=== PATIENT | male | born 1995 | race Caucasian/White ===

== ENCOUNTER 2021-03-23 20:27 | Inpatient (IN) | payer SELFPAY ==
[2021-03-23 20:31] VITALS: BP 142/108; PULSE 89; RESP 18; TEMP 37; O2SAT 98; BMI 38.2
--- NOTE | 2021-03-23 20:35 | W.ED.PSYCH ---
HPI - Psych General: Chief Complaint: Psychiatric Symptoms Stated Complaint: SI Time Seen by Provider: 03/23/21 20:29 Source: patient and EMS Mode of arrival: EMS Limitations: no limitations History of Present Illness: HPI Narrative: 25-year-old male who is brought in by EMS for suicidal ideations. He states that [facility] had a knife that he take away from him as he was trying to kill himself with a knife. He states he is had suicide attempts in the past. He states his last admission was 2 years ago. He states he voluntarily wants to get help. Associated symptoms: Reports depression and suicidal ideation Review of Systems Const: Denies: fever(s), chills, body aches or change in appetite Eyes: Denies: blurry vision or eye discomfort ENMT: Denies: throat pain or dental pain Card: Denies: chest pain Resp: Denies: dyspnea GI: Denies: abdominal pain, nausea, vomiting or diarrhea : Denies: dysuria Musc: Denies: neck pain or back pain Skin/Breast: Denies: rash Neuro: Denies: headache(s) Psych: Reports: depression and suicidal ideation Roberto Carlos/Lymph: Denies: easy bruising All/Imm: Denies: urticaria Physical Exam Const: COMMON NORMALS: no acute distress, patient oriented x3 and healthy appearing HENMT: COMMON NORMALS: normocephalic and atraumatic HEAD & SCALP: normocephalic and atraumatic Eye: COMMON NORMALS: Equal, round and reactive pupils present and EOMs intact bilaterally PUPIL: Yes Equal, round and reactive pupils present Neck/C-Spine: COMMON NORMALS: full ROM and supple Chest: COMMONS NORMALS: normal inspection of the chest and normal palpation of entire chest wall Resp: COMMON NORMALS: normal respiratory effort, No retractions, No use of accessory muscles and clear to auscultation bilaterally AUSCULTATION: clear to auscultation bilaterally Cardio: COMMON NORMALS: regular rate, regular rhythm and No murmurs present (Cardio) RATE: regular rate RHYTHM: regular rhythm GI: COMMON NORMALS: Normal to inspection, nondistended, normoactive bowel sounds present, Soft to palpation, non-tender and no masses PALPATION: Yes Soft to palpation Extremity: COMMON NORMALS: normal to inspection and full ROM Neuro: COMMON NORMALS: patient oriented x3, moves all extremities and no focal motor deficits Psych: COMMON NORMALS: mental status grossly normal, Normal thought process present and cooperative MOOD & AFFECT: Yes depressed mood THOUGHT PROCESS: Normal thought process present THOUGHT CONTENT: Yes Suicidality present Skin: COMMON NORMALS: no rashes or lesions noted and no wounds GENERAL SKIN EXAM: no rashes or lesions noted Course Vital Signs: Vital signs: Vital Signs Temperature 98.6 F 03/23/21 20:31 Pulse Rate 89 03/23/21 20:31 Respiratory Rate 18 03/23/21 20:31 Blood Pressure 142/108 03/23/21 20:31 Pulse Oximetry 98 03/23/21 20:31 MDM - Psych MDM Narrative: Medical decision making narrative: Patient presents for suicidal ideation was placed on a 96-hour hold. Patient is medically cleared and will admit to the psychiatric unit. Patient has been stable while here. Lab Data: Labs: Lab Results 03/23/21 03/23/21 03/23/21 Range/Units 20:34 20:51 20:51 WBC 13.1 H (4.0-10.0) 10^3/ uL RBC 5.23 (4.1-5.3) 10^6/u L Hgb 14.3 (11.7-16.6) g/dL Hct 43.6 (42.0-52.0) % MCV 83.4 (80-94) fl MCH 27.3 L (28.0-34.0) pg MCHC 32.8 (30.0-36.0) g/dL RDW 13.0 (12.1-15.1) % Plt Count 365 (130-400) 10^3/c mm MPV 9.4 (7.4-10.4) fL Neut % (Auto) 72.5 % Lymph % (Auto) 18.0 % Stevens % (Auto) 6.5 % Eos % (Auto) 2.1 % Baso % (Auto) 0.4 % Neut # (Auto) 9.48 H (1.8-7.7) 10^3/u L Lymph # (Auto) 2.4 (0.8-4.8) 10^3/u L Stevens # (Auto) 0.9 (0.2-0.9) 10^3/u L Eos # (Auto) 0.3 (0.0-0.8) 10^3/u L Baso # (Auto) 0.1 (0.0-0.1) 10^3/u L Nucleated RBC % (a uto) 0 % Nucleated RBCs # 0.0 /100WBC Sodium 135 L (136-145) mmol/L Potassium 4.0 (3.5-5.1) mmol/L Chloride 100 (98-107) mmol/L Carbon Dioxide 23 (22-29) mmol/L Anion Gap 16.0 (5-19) BUN 11 (6-20) mg/dL Creatinine 0.9 (0.7-1.2) mg/dL GFR Calculation 101.2 (90-130) mL/min Glucose 164 H (65-115) mg/dL Calculated Osmolal ity 283 L (285-295) mOsm/k g Calcium 9.2 (8.5-10.5) mg/dL Total Bilirubin 0.4 (0.15-1.2) mg/dL AST 17 (0-40) U/L ALT 22 (0-41) U/L Alkaline Phosphata se 50 (40-130) IU/L Total Protein 7.1 (6.6-8.7) g/dL Albumin 4.2 (3.5-5.2) g/dL Globulin 2.9 (1.3-4.6) g/dL Salicylates < 0.3 L (3-10) mg/dL Urine Opiates Scre en Negative (Negative) ng/mL Acetaminophen < 5.0 L (10-30) ug/mL Ur Barbiturates Sc reen Negative (Negative) ng/mL Ur Phencyclidine S crn Negative (Negative) ng/mL Ur Amphetamines Sc reen Negative (Negative) ng/mL U Benzodiazepines Scrn Positive H (Negative) ng/mL Urine Cocaine Scre en Negative (Negative) ng/mL U Marijuana (THC) Screen Negative (Negative) ng/mL Ethyl Alcohol < 10 (0-10) mg/dL Discharge Plan Discharge Patient Disposition: Admitted As Inpatient Clinical Impression: Suicidal ideation Condition: Stable Coding Level of Care Code ED Powder Mill Operator for Scotg Fwd Exam Comprehensive
[2021-03-23 20:54] LABS: Basophils # 0.1 10^3/uL (0.0-0.1); Basophils % 0.4 %; Eosinophils # 0.3 10^3/uL (0.0-0.8); Eosinophils % 2.1 %; Hematocrit 43.6 % (42.0-52.0); Hemoglobin 14.3 g/dL (11.7-16.6); Lymphocytes # 2.4 10^3/uL (0.8-4.8); Mean Corpuscular HGB Conc 32.8 g/dL (30.0-36.0); Mean Corpuscular Hemoglobin 27.3 pg (28.0-34.0); Mean Corpuscular Volume 83.4 fl (80-94); Mean Platelet Volume 9.4 fL (7.4-10.4); Monocytes # 0.9 10^3/uL (0.2-0.9); Monocytes % 6.5 %; Neutrophils # 9.48 10^3/uL (1.8-7.7); Neutrophils % 72.5 %; Nucleated Red Blood Cells % 0 %; Platelet Count 365 10^3/cmm (130-400); Red Blood Count 5.23 10^6/uL (4.1-5.3); White Blood Count 13.1 10^3/uL (4.0-10.0)
[2021-03-23 21:07] LABS: Amphetamines Screen Urine Negative (Negative); Barbiturates Screen Urine Negative (Negative); Benzodiazepines Screen Urine Positive (Negative); Cocaine Screen Urine Negative (Negative); Opiate Screen Urine Negative (Negative); PCP Screen Urine Negative (Negative); THC Screen Urine Negative (Negative)
[2021-03-23] MEDS: OLANZapine 10 mg ODT 20 MG PO (21:13)
[2021-03-23] MEDS: LORazepam 2 mg Tablet PO (21:14)
[2021-03-23 21:16] LABS: Alanine Aminotransferase 22 U/L (0-41); Albumin Level 4.2 g/dL (3.5-5.2); Alkaline Phosphatase 50 IU/L (40-130); Aspartate Amino Transferase 17 U/L (0-40); Blood Urea Nitrogen 11 mg/dL (6-20); Calcium 9.2 mg/dL (8.5-10.5); Carbon Dioxide 23 mmol/L (22-29); Chloride 100 mmol/L (98-107); Globulin 2.9 g/dL (1.3-4.6); Glomerular Filtration Rate 101.2 mL/min (90-130); Glucose 164 mg/dL (65-115); Osmolality Calculated 283 mOsm/kg (285-295); Sodium 135 mmol/L (136-145); Total Bilirubin 0.4 mg/dL (0.15-1.2); Total Protein 7.1 g/dL (6.6-8.7)
[2021-03-23 21:18] LABS: Acetaminophen < 5.0 ug/mL (10-30); Alcohol Level < 10 mg/dL (0-10); Salicylate < 0.3 mg/dL (3-10)
--- NOTE | 2021-03-23 22:14 | PC.NURSE ---
blue paper scrubs would not fit. green scrubs obtained from [facility].
[2021-03-23 22:15] VITALS: RESP 18
[2021-03-24 01:50] VITALS: BP 120/87; PULSE 79; RESP 18; TEMP 37; O2SAT 98
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
--- NOTE | 2021-03-24 02:35 | PC.NURSE ---
CPAP Pt has obstructive sleep apnea, recent sleep study in 11/11 at [facility]. Pressure set at 9
[2021-03-24 03:01] VITALS: BP 133/80; PULSE 90; RESP 18; TEMP 36.6; O2SAT 97
[2021-03-24 03:26] LABS: Lithium 0.3 mmol/L (0.6-1.2)
[2021-03-24 06:00] VITALS: BP 131/72; PULSE 94; RESP 16; TEMP 36.8; O2SAT 96
[2021-03-24] MEDS: nicotine 21 mg Patch 1 PATCH TRANSDERMA (11:37)
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
[2021-03-24 14:00] VITALS: BP 138/108; PULSE 87; RESP 20; TEMP 36.8; O2SAT 96
[2021-03-24 17:26] VITALS: PULSE 93; O2SAT 98
[2021-03-24 20:30] VITALS: BP 150/90; PULSE 73; RESP 18; TEMP 36.4; O2SAT 100
[2021-03-24] MEDS: trazodone 100 mg Tablet PO (21:09)
[2021-03-24] MEDS: gabapentin 300 mg Capsule PO (21:09)
[2021-03-25] MEDS: nicotine 2 mg Gum BUCCAL ×2 (05:01→08:26)
[2021-03-25 06:00] VITALS: BP 150/90; PULSE 73; RESP 18; TEMP 36.4; O2SAT 100
[2021-03-25] MEDS: venlafaxine ER (24HR) 150 mg Capsule PO (08:25)
[2021-03-25] MEDS: lurasidone 80 mg Tablet PO (08:25)
[2021-03-25] MEDS: pantoprazole DR 40 mg Tablet 20 MG PO (08:25)
[2021-03-25] MEDS: lithium carbonate 300 mg Capsule 600 MG PO (08:25)
[2021-03-25] MEDS: lurasidone 20 mg Tablet 40 MG PO (08:26)
[2021-03-25] MEDS: gabapentin 300 mg Capsule PO ×3 (08:26→21:55)
[2021-03-25 14:00] VITALS: BP 160/91; PULSE 84; RESP 16; TEMP 36.2; O2SAT 98
--- NOTE | 2021-03-25 19:24 | PM.NPN ---
Subjective NPU Subjective: Interval history: I met with the treatment team to discuss the patient's progress. He is thinking about living with his stepdad or with his mother. He had some difficulty with the CPAP machine. We requested respiratory therapy consultation. The patient says he feels more relaxed today. Denies feeling depressed or anxious. He says that the Rexulti is helping. He did not take it more than a couple of times prior to admission. He slept okay last night. He says he has done you doing drugs now. 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 He denies suicidal or homicidal ideation. He has no auditory visual hallucinations. Mental Status Exam MSE Comments: I met with the patient in the dayroom, and he was dressed in hospital scrubs and appropriately groomed. He was calm, cooperative, interactive, and made good eye contact. No psychomotor agitation or retardation. Speech is at a regular rate and rhythm, normal volume, good articulation, not pressured. Alert, oriented to person, place, time, situation. Attention and concentration were intact. Memory is intact. Mood is depressed and anxious, but he says he is feeling mellow at this time. Affect is pleasant. Thought process is logical and goal-directed. Thought content: Denies auditory and visual hallucinations. No delusions or paranoia are noted. No current suicidal ideation, and no homicidal ideation. Fund of knowledge is intact to exam. Language is intact to exam. Insight and judgment appear to be fair. Vitals/I&O/Wt Last Vital Signs Temp 97.2 F L 03/25/21 14:00 Pulse 84 03/25/21 14:00 Resp 16 03/25/21 14:00 BP 160/91 03/25/21 14:00 Pulse Ox 98 03/25/21 14:00 Weight last 48 hrs Weight 138.799 kg Data NPU : 03/23/21 20:51 03/23/21 20:51 A&P Assessment and plan (1) Alcohol abuse, episodic: Status: Acute (2) Cannabis dependence: Status: Acute (3) Opiate dependence: Status: Acute (4) Anxiety disorder, unspecified: Status: Acute (5) Depressive disorder, not elsewhere classified: Status: Acute (6) Suicidal ideation: Status: Acute Additional A&P Information DESTIN MEDEIROS is a 26 year old male with depression, anxiety and polysubstance abuse who presented to the ED after trying to kill himself with a knife. RECOMMENDATION AND PLAN: 1. Continue current medication. See above. 2. Continue every 15 minute checks for safety. 3. Encourage individual, group and milieu therapies. 4. Encourage sober living treatment after discharge at the highest level of care to which he is willing to commit. Involuntary Hold Information 96 Hour Hold: 96 Hour Involuntary Admission: Yes 96 Hour Hold Ending Date: 03/29/21 96 Hour Hold Ending Time: 21:40 Attestations NPU Medical Necessity Statement*: Psychiatric hospitalization is medically necessary to prevent access to lethal means, to reevaluate medication, and to coordinate a safe discharge. Patient will be in the hospital for over 2 midnights. Likely length of stay is 1-3 days. Coding Level of Care Code Acute Fire Hose Curer for Jhoan David Diagnoses Alcohol abuse, episodic F10.10 Cannabis dependence F12.20 Opiate dependence F11.20 Anxiety disorder, unspecified F41.9 Depressive disorder, not elsewhere classified F32.9 Suicidal ideation R45.850
[2021-03-25] MEDS: trazodone 100 mg Tablet PO (21:55)
[2021-03-25 22:00] VITALS: BP 160/91; PULSE 84; RESP 16; TEMP 36.2; O2SAT 98
[2021-03-26 06:00] VITALS: BP 140/98; PULSE 86; RESP 18; TEMP 36.6; O2SAT 97
[2021-03-26] MEDS: lurasidone 20 mg Tablet 40 MG PO (08:39)
[2021-03-26] MEDS: gabapentin 300 mg Capsule PO (08:39)
[2021-03-26] MEDS: venlafaxine ER (24HR) 150 mg Capsule PO (08:39)
[2021-03-26] MEDS: pantoprazole DR 40 mg Tablet 20 MG PO (08:39)
[2021-03-26] MEDS: lurasidone 80 mg Tablet PO (08:39)
[2021-03-26] MEDS: lithium carbonate 300 mg Capsule 600 MG PO (08:39)
[2021-03-26 09:59] VITALS: BP 140/98; PULSE 86; RESP 18; TEMP 36.6; O2SAT 97
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
== END 2021-03-26 10:00 | disposition home or self-care (01) | DRG 881 ==
LOC: ER 22:01 → NP 22:08
PROVIDERS: Admitting Provider Psychiatry & Neurology Child & Adolescent Psychiatry; Emergency Provider Emergency Medicine; Visit Provider Psychiatry & Neurology Child & Adolescent Psychiatry
DX: F32.9 Major depressive disorder, single episode, unspecified (principal); R45.851 Suicidal ideations; F11.288 Opioid dependence with other opioid-induced disorder; F10.24 Alcohol dependence with alcohol-induced mood disorder; F41.9 Anxiety disorder, unspecified; F11.24 Opioid dependence with opioid-induced mood disorder; F17.210 Nicotine dependence, cigarettes, uncomplicated; Z91.5 Personal history of self-harm; Z81.8 Family history of other mental and behavioral disorders
CPT/HCPCS: 80053; 80178; 80306; 80307; 85025; 99285